=== PATIENT | male | born 1965 | race Caucasian/White ===

== ENCOUNTER 2017-08-09 19:17 | Emergency (ER) | payer BC ==
[2017-08-09 19:35] VITALS: BP 144/63
[2017-08-09] MEDS ORDERED: Ondansetron 4 MG Tab.DIS PO ONE (20:08)
[2017-08-09] MEDS ORDERED: Take Home: Ondansetron 4 MG Tab.DIS, 2 Tab Pack PO ONE (20:58)
[2017-08-09 20:59] LABS: CHLORIDE,CL 103 mmol/L (98-107); SODIUM,NA 140 mmol/L (136-145)
--- NOTE | 2017-08-09 21:06 | EDM.PDOC ---
ED HPI GENERAL MEDICAL PROBLEM - General Chief Complaint: General Stated Complaint: nausea, doesn't feel well Time Seen by Provider: 08/09/17 19:53 Source of Information: Reports: Patient History Limitations: Reports: No Limitations - History of Present Illness INITIAL COMMENTS - FREE TEXT/NARRATIVE: Patient reports nausea in the evening over the last 3 days. No reports of being around anyone with illness recently. He does have history of MS, CAD, STEMI. Patient states he feels just fine all day but develops worsening nausea as the evening progresses. He denies chest pain, SOB, fever, chills, arm or jaw numbness or tingling. He is having regular bowel and urinary movements. Denies blood stool, emesis, or urine. He does state he has some throat pain and swelling. Denies abdominal pain or cramping. No smoking, alcohol, or drug use. Is concerned due to his history. He has had the influenza vaccination this year. Onset: Gradual Duration: Intermittent Location: Reports: Abdomen Severity: Mild Associated Symptoms: Reports: Nausea/Vomiting - Related Data Allergies Allergy/AdvReac Type Severity Reaction Status Date / Time No Known Allergies Allergy Verified 08/09/17 19:29 Home Meds: Home Meds Aspirin [Faustina Chewable] 81 mg PO DAILY 09/28/14 [History] Fingolimod [Gilenya] 0.5 mg PO DAILY 09/28/14 [History] Hydrochlorothiazide [Hydrochlorothiazide] 25 mg PO DAILY 09/28/14 [History] Lisinopril [Lisinopril] 20 mg PO DAILY 09/28/14 [History] Pravastatin [Pravachol] 20 mg PO DAILY 09/28/14 [History] Vardenafil HCl [Levitra] 2.5 mg PO DAILY PRN 09/28/14 [History] Metoprolol Succinate 50 mg PO DAILY 08/09/17 [History] Past Medical History Cardiovascular History: Reports: High Cholesterol, Hypertension Neurological History: Reports: MS - Past Surgical History Cardiovascular Surgical History: Reports: Percutaneous Transluminal Angioplasty Social & Family History - Tobacco Use Smoking Status *Q: Never Smoker - Alcohol Use Days Per Week of Alcohol Use: 2 (just occasional) - Recreational Drug Use Recreational Drug Use: No ED ROS GENERAL - Review of Systems Review Of Systems: See Below Constitutional: Reports: No Symptoms HEENT: Reports: Throat Pain, Throat Swelling Respiratory: Reports: No Symptoms Cardiovascular: Reports: No Symptoms Endocrine: Reports: No Symptoms GI/Abdominal: Reports: Nausea : Reports: No Symptoms Musculoskeletal: Reports: No Symptoms Skin: Reports: No Symptoms Neurological: Reports: No Symptoms Psychiatric: Reports: No Symptoms Hematologic/Lymphatic: Reports: No Symptoms Immunologic: Reports: No Symptoms ED EXAM, GENERAL - Physical Exam Exam: See Below Exam Limited By: No Limitations General Appearance: Alert, WD/WN, No Apparent Distress Eye Exam: Bilateral Eye: EOMI, PERRL Ears: Normal TMs Nose: Normal Inspection, Normal Mucosa, No Blood Throat/Mouth: Normal Inspection, Normal Lips, Normal Teeth, Normal Gums, Normal Oropharynx, Normal Voice, No Airway Compromise Head: Atraumatic, Normocephalic Neck: Tender Midline. No: Lymphadenopathy (L), Lymphadenopathy (R) Respiratory/Chest: No Respiratory Distress, Lungs Clear, Normal Breath Sounds, No Accessory Muscle Use, Chest Non-Tender Cardiovascular: Normal Peripheral Pulses, Regular Rate, Rhythm, No Edema, No Gallop, No JVD, No Murmur, No Rub GI/Abdominal: Normal Bowel Sounds, Soft, Non-Tender, No Organomegaly, No Distention, No Abnormal Bruit, No Mass Back Exam: Normal Inspection, Full Range of Motion, NT Extremities: Normal Inspection, Normal Range of Motion, Non-Tender, Normal Capillary Refill, No Pedal Edema Neurological: Alert, Oriented, CN II-XII Intact, Normal Cognition, Normal Gait, Normal Reflexes, No Motor/Sensory Deficits Psychiatric: Normal Affect, Normal Mood Skin Exam: Warm, Dry, Intact, Normal Color, No Rash Lymphatic: No Adenopathy Course - Vital Signs Last Recorded V/S: Last Vital Signs Temp 36.8 C 08/09/17 19:30 Pulse 70 08/09/17 19:30 Resp 18 08/09/17 19:30 BP 144/63 H 08/09/17 19:30 Pulse Ox 97 08/09/17 19:30 - Orders/Labs/Meds Orders: Active Orders 24 hr Category Date Time Status AMYLASE [CHEM] Stat Lab 08/09/17 20:30 Received C-REACTIVE PROTEIN [CHEM] Stat Lab 08/09/17 20:30 Received COMPREHENSIVE METABOLIC PN,CMP [CHEM] Stat Lab 08/09/17 20:30 Received CULTURE STREP A CONFIRMATION [RM] Stat Lab 08/09/17 20:15 Results LIPASE [CHEM] Stat Lab 08/09/17 20:30 Received STREP SCRN A RAPID W CULT CONF [RM] Stat Lab 08/09/17 20:15 Results TROPONIN I [CHEM] Stat Lab 08/09/17 20:30 Received Labs: Laboratory Tests 08/09/17 Range/Units 20:30 WBC 6.0 (4.0-10.0) x10^3/uL RBC 4.38 L (4.5-6.0) x10^6/uL Hgb 13.7 L (14.0-18.0) g/dL Hct 39.1 L (40.0-52.0) % MCV 89.3 (78.0-93.0) fL MCH 31.3 (26.0-32.0) pg MCHC 35.0 (32.0-36.0) g/dL RDW Coeff of Jon 13.9 (10.0-15.0) % Plt Count 232 (130-400) x10^3/uL Neut % (Auto) 80.9 H (50.0-80.0) % Lymph % (Auto) 6.4 L (25.0-50.0) % [place] % (Auto) 11.2 H (2.0-11.0) % Eos % (Auto) 1.3 (0.0-4.0) % Baso % (Auto) 0.2 (0.2-1.2) % Meds: Medications Discontinued Medications Generic Name Dose Route Start Last Admin Trade Name Freq PRN Reason Stop Dose Admin Ondansetron HCl 4 mg 08/09/17 20:08 08/09/17 20:15 Zofran Odt PO 08/09/17 20:09 4 mg ONETIME ONE Administration Ondansetron HCl 1 packet 08/09/17 20:58 Take Home: Ondansetron Odt 4 Mg, 2 Tab Pack PO 08/09/17 20:59 ONETIME ONE - Re-Assessments/Exams Free Text/Narrative Re-Assessment/Exam: 08/09/17 21:11 review of labs, no acute process is identified. Will wait for strep culture tomorrow. Departure - Departure Time of Disposition: 21:04 Disposition: Home, Self-Care 01 Condition: Good Clinical Impression: Viral gastroenteritis - Discharge Information Instructions: Viral Gastroenteritis, Adult, [id number], Nausea, Adult Referrals: Darell Tesfaye MD [Primary Care Provider] - Additional Instructions: Follow up with your primary doctor for additional symptom management. Drink plenty of water to stay hydrated. We will send home 2 anti nausea pills to take as needed. One of my colleagues will call you if the strep culture grows anything. Please call us if you have any questions or concerns. - Problem List & Annotations (1) Viral gastroenteritis SNOMED Code(s): 102494727 Code(s): A08.4 - VIRAL INTESTINAL INFECTION, UNSPECIFIED Status: Acute Current Visit: Yes - Problem List Review Problem List Initiated/Reviewed/Updated: Yes - My Orders Last 24 Hours: My Active Orders 08/09/17 20:15 CULTURE STREP A CONFIRMATION [RM] Stat STREP SCRN A RAPID W CULT CONF [RM] Stat 08/09/17 20:30 AMYLASE [CHEM] Stat C-REACTIVE PROTEIN [CHEM] Stat COMPREHENSIVE METABOLIC PN,CMP [CHEM] Stat LIPASE [CHEM] Stat TROPONIN I [CHEM] Stat - Assessment/Plan Last 24 Hours: My Active Orders 08/09/17 20:15 CULTURE STREP A CONFIRMATION [RM] Stat STREP SCRN A RAPID W CULT CONF [RM] Stat 08/09/17 20:30 AMYLASE [CHEM] Stat C-REACTIVE PROTEIN [CHEM] Stat COMPREHENSIVE METABOLIC PN,CMP [CHEM] Stat LIPASE [CHEM] Stat TROPONIN I [CHEM] Stat Assessment:: viral gastroenteritis Plan: Follow up with your primary doctor for additional symptom management. Drink plenty of water to stay hydrated. We will send home 2 anti nausea pills to take as needed. One of my colleagues will call you if the strep culture grows anything. Please call us if you have any questions or concerns.
== END 2017-08-09 21:11 | disposition home or self-care (01) ==
LOC: VM.ED 19:17
DX: A08.4 Viral intestinal infection, unspecified (principal); E78.00 Pure hypercholesterolemia, unspecified; I10 Essential (primary) hypertension; I25.10 Atherosclerotic heart disease of native coronary artery without angina pectoris; I25.2 Old myocardial infarction; Z79.899 Other long term (current) drug therapy; Z79.82 Long term (current) use of aspirin
CPT/HCPCS: 36415; 80053; 82150; 83690; 84484; 85025; 86140; 87081; 87880; 99283; A9270

== ENCOUNTER 2018-10-14 03:50 | Emergency (ER) | payer BC ==
[2018-10-14] MEDS ORDERED: Sodium Chloride 0.9% 10 ML Syringe FLUSH PRN (03:58)
[2018-10-14] MEDS ORDERED: Sodium Chloride 0.9% 1,000 ML IV SCH (04:00)
--- NOTE | 2018-10-14 04:20 | EDM.PDOC ---
ED HPI GENERAL MEDICAL PROBLEM - General Chief Complaint: Chest Pain Stated Complaint: Chest Pain Time Seen by Provider: 10/14/18 03:55 Source of Information: Reports: Patient, EMS History Limitations: Reports: No Limitations - History of Present Illness INITIAL COMMENTS - FREE TEXT/NARRATIVE: Patient presents to the ED via EMS with complaints of chest pain, chest pressure , and left shoulder pain. No sweating, nausea, or vomiting. States this is how he felt the last time he had a heart attack. He took 2 doses of nitro; both of which relieved the pain and pressure for a brief time. He was also given 4 baby aspirin in the ambulance. Denies any headache, LOC, SOB, abdominal pain, nausea or vomiting. No blood in urine or stool. Is on Plavix and does have active MS. Onset: Today, Sudden Duration: Intermittent Location: Reports: Chest, Upper Extremity, Left Quality: Reports: Pressure Severity: Moderate Associated Symptoms: Reports: Chest Pain - Related Data Allergies Allergy/AdvReac Type Severity Reaction Status Date / Time lipitor Allergy Muscle Uncoded 06/26/18 11:21 Aches Home Meds: Home Meds Aspirin [Faustina Chewable] 81 mg PO DAILY 09/28/14 [History] Fingolimod [Gilenya] 0.5 mg PO DAILY 09/28/14 [History] Lisinopril 20 mg PO DAILY 09/28/14 [History] Vardenafil HCl [Levitra] 2.5 mg PO ASDIRECTED PRN 09/28/14 [History] Metoprolol Succinate 50 mg PO DAILY 08/09/17 [History] B12/Levomefolate Calcium/B-6 [Folbic Rf Tablet] 1 each PO DAILY 06/26/18 [ History] Clopidogrel [Plavix] 75 mg PO DAILY 06/26/18 [History] Nitroglycerin [Nitrostat] 0.4 mg SL ASDIRECTED PRN 06/26/18 [History] [place]-3/DHA/Epa/Fish Oil [Fish Oil 1,000 mg Softgel] 1 each PO DAILY 06/26/18 [ History] Rosuvastatin Calcium 20 mg PO DAILY 06/26/18 [History] Terbinafine [LamISIL] 250 mg PO DAILY 06/26/18 [History] Vit C/Ascorb Sod/Multivit-Min [Emergen-C 500 mg Chewable Tab] 500 mg PO BID [History] Past Medical History Cardiovascular History: Reports: High Cholesterol, Hypertension Neurological History: Reports: MS - Past Surgical History Cardiovascular Surgical History: Reports: Percutaneous Transluminal Angioplasty ED ROS GENERAL - Review of Systems Review Of Systems: See Below Constitutional: Reports: No Symptoms HEENT: Reports: No Symptoms Respiratory: Reports: No Symptoms Cardiovascular: Reports: Chest Pain, Other (chest pressure) Endocrine: Reports: No Symptoms GI/Abdominal: Reports: No Symptoms : Reports: No Symptoms Musculoskeletal: Reports: Shoulder Pain (left) Skin: Reports: No Symptoms Neurological: Reports: No Symptoms Psychiatric: Reports: No Symptoms Hematologic/Lymphatic: Reports: No Symptoms Immunologic: Reports: No Symptoms ED EXAM, GENERAL - Physical Exam Exam: See Below Exam Limited By: No Limitations General Appearance: Alert, WD/WN, Anxious Eye Exam: Bilateral Eye: EOMI, Normal Inspection, PERRL Ears: Normal TMs Nose: Normal Inspection, Normal Mucosa, No Blood Throat/Mouth: Normal Inspection, Normal Lips, Normal Teeth, Normal Gums, Normal Oropharynx, Normal Voice, No Airway Compromise Head: Atraumatic, Normocephalic Neck: Normal Inspection, Supple, Non-Tender, Full Range of Motion Respiratory/Chest: No Respiratory Distress, Lungs Clear, Normal Breath Sounds, No Accessory Muscle Use, Chest Non-Tender Cardiovascular: Normal Peripheral Pulses, Regular Rate, Rhythm, No Edema, No Gallop, No JVD, No Murmur, No Rub Peripheral Pulses: 2+: Posterior Tibial (L), Posterior Tibial (R), Dorsalis Pedis (L), Dorsalis Pedis (R) GI/Abdominal: Normal Bowel Sounds, Soft, Non-Tender, No Organomegaly, No Distention, No Abnormal Bruit, No Mass Back Exam: Normal Inspection, Full Range of Motion, NT Extremities: Normal Inspection, Normal Range of Motion, Non-Tender, Normal Capillary Refill, No Pedal Edema Neurological: Alert, Oriented, CN II-XII Intact, Normal Cognition, Normal Gait, Normal Reflexes, No Motor/Sensory Deficits Psychiatric: Normal Affect, Anxious Skin Exam: Warm, Dry, Intact, Normal Color, No Rash Course - Orders/Labs/Meds Orders: Active Orders 24 hr Category Date Time Status Chest 1V Frontal [CR] Stat Exams 10/14/18 03:56 Ordered Sodium Chloride 0.9% [Normal Saline] 1,000 ml Med 10/14/18 04:00 Ordered IV ASDIRECTED Sodium Chloride 0.9% [Saline Flush] Med 10/14/18 03:58 Ordered 10 ml FLUSH ASDIRECTED PRN Saline Lock Insert [OM.PC] Routine Oth 10/14/18 03:58 Ordered Medication Orders Sodium Chloride (Normal Saline) 1,000 mls @ 999 mls/hr IV ASDIRECTED RITA Sodium Chloride (Saline Flush) 10 ml FLUSH ASDIRECTED PRN PRN Reason: Keep Vein Open Labs: Laboratory Tests 10/14/18 10/14/18 10/14/18 Range/Units 04:02 04:02 04:02 WBC 4.0 (4.0-10.0) x10^3/uL RBC 4.37 L (4.5-6.0) x10^6/uL Hgb 13.4 L (14.0-18.0) g/dL Hct 40.1 (40.0-52.0) % MCV 91.8 (78.0-93.0) fL MCH 30.7 (26.0-32.0) pg MCHC 33.4 (32.0-36.0) g/dL RDW Coeff of Jon 13.9 (10.0-15.0) % Plt Count 191 (130-400) x10^3/uL Neut % (Auto) 70.3 (50.0-80.0) % Lymph % (Auto) 13.2 L (25.0-50.0) % [place] % (Auto) 13.7 H (2.0-11.0) % Eos % (Auto) 2.5 (0.0-4.0) % Baso % (Auto) 0.3 (0.2-1.2) % PT 9.9 (9.6-11.4) SEC INR 0.9 L (2.0-3.5) APTT (21.3-33.5) SEC D-Dimer, Quantitative < 0.19 (<=0.58) mg/LFEU Sodium 141 (136-145) mmol/L Potassium 3.9 (3.5-5.1) mmol/L Chloride 103 (98-107) mmol/L Carbon Dioxide 26 (21-32) mmol/L Anion Gap 15.9 (10-20) mmol/L BUN 20 H (7-18) mg/dL Creatinine 0.8 (0.70-1.30) mg/dL Est Cr Clr Drug Dosing TNP Estimated GFR (MDRD) > 60 Glucose 136 H (74-106) mg/dL Calcium 8.8 (8.5-10.1) mg/dL Corrected Calcium 9.20 (8.5-10.1) mg/dL Phosphorus 3.3 (2.6-4.7) mg/dL Magnesium 1.9 (1.8-2.4) mg/dL Total Bilirubin 0.4 (0.2-1.0) mg/dL AST 34 (15-37) U/L ALT 71 H (16-63) U/L Alkaline Phosphatase 81 (46-116) U/L POC Troponin I (0.00-0.08) ng/mL NT-Pro-B Natriuret Pep 40 (<=125) pg/mL Total Protein 7.0 (6.4-8.2) g/dL Albumin 3.5 (3.4-5.0) g/dL Globulin 3.5 Albumin/Globulin Ratio 1.00 TSH, Ultra Sensitive 2.648 (0.358-3.74) uIU/mL 10/14/18 10/14/18 Range/Units 04:02 04:07 WBC (4.0-10.0) x10^3/uL RBC (4.5-6.0) x10^6/uL Hgb (14.0-18.0) g/dL Hct (40.0-52.0) % MCV (78.0-93.0) fL MCH (26.0-32.0) pg MCHC (32.0-36.0) g/dL RDW Coeff of Jon (10.0-15.0) % Plt Count (130-400) x10^3/uL Neut % (Auto) (50.0-80.0) % Lymph % (Auto) (25.0-50.0) % [place] % (Auto) (2.0-11.0) % Eos % (Auto) (0.0-4.0) % Baso % (Auto) (0.2-1.2) % PT (9.6-11.4) SEC INR (2.0-3.5) APTT 22.6 (21.3-33.5) SEC D-Dimer, Quantitative (<=0.58) mg/LFEU Sodium (136-145) mmol/L Potassium (3.5-5.1) mmol/L Chloride (98-107) mmol/L Carbon Dioxide (21-32) mmol/L Anion Gap (10-20) mmol/L BUN (7-18) mg/dL Creatinine (0.70-1.30) mg/dL Est Cr Clr Drug Dosing Estimated GFR (MDRD) Glucose (74-106) mg/dL Calcium (8.5-10.1) mg/dL Corrected Calcium (8.5-10.1) mg/dL Phosphorus (2.6-4.7) mg/dL Magnesium (1.8-2.4) mg/dL Total Bilirubin (0.2-1.0) mg/dL AST (15-37) U/L ALT (16-63) U/L Alkaline Phosphatase (46-116) U/L POC Troponin I 0.00 (0.00-0.08) ng/mL NT-Pro-B Natriuret Pep (<=125) pg/mL Total Protein (6.4-8.2) g/dL Albumin (3.4-5.0) g/dL Globulin Albumin/Globulin Ratio TSH, Ultra Sensitive (0.358-3.74) uIU/mL Meds: Medications Generic Name Dose Route Start Last Admin Trade Name Freq PRN Reason Stop Dose Admin Sodium Chloride 1,000 mls @ 999 mls/hr 10/14/18 04:00 Normal Saline IV ASDIRECTED RITA Sodium Chloride 10 ml 10/14/18 03:58 Saline Flush FLUSH ASDIRECTED PRN Keep Vein Open - Radiology Interpretation Free Text/Narrative:: chest x-ray negative for acute process Departure - Departure Time of Disposition: 05:30 Disposition: Home, Self-Care 01 Condition: Good Clinical Impression: Atypical chest pain Forms: ED Department Discharge, Interfacility Transfer EMTALA - Problem List & Annotations (1) Atypical chest pain SNOMED Code(s): 777288030 Code(s): R07.89 - OTHER CHEST PAIN Status: Acute - My Orders Last 24 Hours: My Active Orders 10/14/18 03:56 Chest 1V Frontal [CR] Stat 10/14/18 03:58 Sodium Chloride 0.9% [Saline Flush] 10 ml FLUSH ASDIRECTED PRN Saline Lock Insert [OM.PC] Routine 10/14/18 04:00 Sodium Chloride 0.9% [Normal Saline] 1,000 ml IV ASDIRECTED - Assessment/Plan Last 24 Hours: My Active Orders 10/14/18 03:56 Chest 1V Frontal [CR] Stat 10/14/18 03:58 Sodium Chloride 0.9% [Saline Flush] 10 ml FLUSH ASDIRECTED PRN Saline Lock Insert [OM.PC] Routine 10/14/18 04:00 Sodium Chloride 0.9% [Normal Saline] 1,000 ml IV ASDIRECTED
[2018-10-14 04:39] LABS: ANION GAP 15.9 mmol/L (10-20); CHLORIDE,CL 103 mmol/L (98-107); SODIUM,NA 141 mmol/L (136-145)
--- NOTE | 2018-10-14 17:05 | CR ---
[id number] RAD/RAD Chest PA or AP 1V EXAM: SINGLE VIEW CHEST. INDICATION: CHEST PAIN COMPARISON: CORRELATION IS MADE WITH THE EXAM OF JUNE 04, 2018. FINDINGS: The lungs are clear. The cardiomediastinal contour is moderately prominent but stable. IMPRESSION: NO ACUTE PROCESS. Esa Baron MD 10/14/18 [id number] Thank you for allowing us to participate in the care of your patient.
[2018-10-15 18:15] VITALS: BP 122/64
== END 2018-10-14 06:20 | disposition home or self-care (01) ==
LOC: VM.ED 03:50
DX: R07.89 Other chest pain (principal); E78.00 Pure hypercholesterolemia, unspecified; I10 Essential (primary) hypertension; Z88.8 Allergy status to other drugs, medicaments and biological substances; Z79.82 Long term (current) use of aspirin; Z79.899 Other long term (current) drug therapy
CPT/HCPCS: 36415; 71045; 80053; 83735; 83880; 84100; 84443; 84484; 85025; 85379; 85610; 85730; 93005; 99285-25

== ENCOUNTER 2018-12-22 03:00 | Emergency (ER) | payer BC ==
[2018-12-22] MEDS ORDERED: Sodium Chloride 0.9% 10 ML Syringe FLUSH PRN (04:04)
[2018-12-22] MEDS ORDERED: Sodium Chloride 0.9% 1,000 ML IV ONE (04:05)
[2018-12-22] MEDS ORDERED: Ondansetron 4 MG/2 ML SDV IVPUSH ONE (04:05)
[2018-12-22 04:25] LABS: CHLORIDE,CL 103 mmol/L (98-107); SODIUM,NA 140 mmol/L (136-145)
--- NOTE | 2018-12-22 05:03 | EDM.PDOC ---
ED HPI GENERAL MEDICAL PROBLEM - General Chief Complaint: Chest Pain Stated Complaint: Palpitations, heart racing Time Seen by Provider: 12/22/18 03:00 Source of Information: Reports: Patient History Limitations: Reports: No Limitations - History of Present Illness INITIAL COMMENTS - FREE TEXT/NARRATIVE: Pt. presents to ER with complaints of nausea and "not feeling well". He is currently being treated for bronchitis and is on azithromycin. He states that he woke in the night with complaints of diaphoresis and palpitations. He states that he took half a tablet of imdur (a medication that he stopped taking due to intolerance) and states that he started feeling worse. Pt. has a history of CAD and previous STEMI. He has an intraventricular conduction delay and is followed by cardiology. He states that after taking the imdur, he felt lightheaded and nauseated. Denies any chest pain. No shortness of breath. No abdominal pain. Onset Date: 12/22/18 Location: Reports: Chest, Generalized - Related Data Allergies Allergy/AdvReac Type Severity Reaction Status Date / Time lipitor Allergy Muscle Uncoded 12/22/18 03:24 Aches Home Meds: Home Meds Aspirin [Faustina Chewable] 81 mg PO DAILY 09/28/14 [History] Fingolimod [Gilenya] 0.5 mg PO DAILY 09/28/14 [History] Lisinopril 20 mg PO DAILY 09/28/14 [History] Vardenafil HCl [Levitra] 2.5 mg PO ASDIRECTED PRN 09/28/14 [History] Metoprolol Succinate 50 mg PO DAILY 08/09/17 [History] Aspirin 325 mg PO Q6H PRN 06/04/18 [History] Aspirin [Halfprin] 81 mg PO DAILY 06/04/18 [History] Fingolimod HCl [Gilenya] 0.5 mg PO DAILY 06/04/18 [History] Lisinopril [Zestril] 20 mg PO DAILY 06/04/18 [History] Metoprolol Succinate [Toprol Xl] 50 mg PO DAILY 06/04/18 [History] Omeprazole Magnesium [Prilosec Otc] 40 mg PO DAILY 06/04/18 [History] Pravastatin [Pravachol] 40 mg PO DAILY 06/04/18 [History] Vardenafil HCl [Levitra] 20 mg PO ASDIRECTED PRN 06/04/18 [History] hydroCHLOROthiazide [Hydrochlorothiazide] 25 mg PO DAILY 06/04/18 [History] B12/Levomefolate Calcium/B-6 [Folbic Rf Tablet] 1 each PO DAILY 06/26/18 [ History] Clopidogrel [Plavix] 75 mg PO DAILY 06/26/18 [History] Nitroglycerin [Nitrostat] 0.4 mg SL ASDIRECTED PRN 06/26/18 [History] [place]-3/DHA/Epa/Fish Oil [Fish Oil 1,000 mg Softgel] 1 each PO DAILY 06/26/18 [ History] Rosuvastatin Calcium 20 mg PO DAILY 06/26/18 [History] Terbinafine [LamISIL] 250 mg PO DAILY 06/26/18 [History] Vit C/Ascorb Sod/Multivit-Min [Emergen-C 500 mg Chewable Tab] 500 mg PO BID [History] Past Medical History - Past Health History Medical/Surgical History: Denies Medical/Surgical History HEENT History: Reports: Other (See Below) Other HEENT History: Optic Neuritis Cardiovascular History: Reports: High Cholesterol, Hypertension, Other (See Below) Other Cardiovascular History: abnormal ekg Genitourinary History: Reports: Other (See Below) Other Genitourinary History: Erectile Disfunction Neurological History: Reports: MS Psychiatric History: Reports: Anxiety Endocrine/Metabolic History: Reports: Obesity/BMI 30+ - Infectious Disease History Infectious Disease History: Reports: Chicken Pox - Past Surgical History Cardiovascular Surgical History: Reports: Percutaneous Transluminal Angioplasty Social & Family History - Family History Family Medical History: Noncontributory - Caffeine Use Caffeine Use: Reports: Tea Other Caffeine Use: 1 time day ED ROS GENERAL - Review of Systems Review Of Systems: See Below Constitutional: Reports: Fatigue, Night Sweats, Diaphoresis. Denies: Fever, Chills HEENT: Reports: No Symptoms Respiratory: Reports: No Symptoms Cardiovascular: Reports: Lightheadedness Endocrine: Reports: No Symptoms GI/Abdominal: Reports: No Symptoms : Reports: No Symptoms Musculoskeletal: Reports: No Symptoms Skin: Reports: No Symptoms Neurological: Reports: No Symptoms Psychiatric: Reports: No Symptoms Hematologic/Lymphatic: Reports: No Symptoms Immunologic: Reports: No Symptoms ED EXAM, GENERAL - Physical Exam Exam: See Below Exam Limited By: No Limitations General Appearance: Alert, WD/WN, No Apparent Distress Eye Exam: Bilateral Eye: EOMI, Normal Fundi, Normal Inspection, PERRL Nose: Normal Inspection, Normal Mucosa, No Blood Throat/Mouth: Normal Inspection, Normal Lips, Normal Teeth, Normal Gums, Normal Oropharynx, Normal Voice, No Airway Compromise Head: Atraumatic, Normocephalic Neck: Normal Inspection, Supple, Non-Tender, Full Range of Motion Respiratory/Chest: No Respiratory Distress, Lungs Clear, Normal Breath Sounds, No Accessory Muscle Use, Chest Non-Tender Cardiovascular: Normal Peripheral Pulses, Regular Rate, Rhythm, No Edema, No Gallop, No JVD, No Murmur, No Rub Peripheral Pulses: 4+: Radial (R) GI/Abdominal: Normal Bowel Sounds, Soft, Non-Tender, No Organomegaly, No Distention, No Mass (Male) Exam: Deferred Rectal (Males) Exam: Deferred Back Exam: Normal Inspection, Full Range of Motion, NT Extremities: Normal Inspection, Normal Range of Motion, Non-Tender, Normal Capillary Refill, No Pedal Edema Neurological: Alert, Oriented, CN II-XII Intact, Normal Cognition, Normal Gait, Normal Reflexes, No Motor/Sensory Deficits Psychiatric: Normal Affect, Normal Mood Skin Exam: Warm, Dry, Intact, No Rash Lymphatic: No Adenopathy EKG INTERPRETATION Rhythm: NSR EKG Interpretation Comments: intraventricular conduction delay noted. EKG was compared to several others and was unchanged. Course - Vital Signs Last Recorded V/S: Last Vital Signs Temp 36.3 C 12/22/18 03:10 Pulse 62 12/22/18 03:10 Resp 14 12/22/18 03:58 BP 109/54 L 12/22/18 03:58 Pulse Ox 97 12/22/18 03:58 - Orders/Labs/Meds Orders: Active Orders 24 hr Category Date Time Status EKG Documentation Completion [RC] STAT Care 12/22/18 03:25 Active Chest 2V [CR] Stat Exams 12/22/18 03:25 Taken Sodium Chloride 0.9% [Normal Saline] 1,000 ml Med 12/22/18 04:05 Active IV .BOLUS Sodium Chloride 0.9% [Saline Flush] Med 12/22/18 04:04 Active 10 ml FLUSH ASDIRECTED PRN Peripheral IV Insertion Adult [OM.PC] Routine Oth 12/22/18 04:05 Ordered Medication Orders Sodium Chloride (Normal Saline) 1,000 mls @ 1,000 mls/hr IV .BOLUS ONE Stop: 12/22/18 05:04 Last Admin: 12/22/18 04:05 Dose: 1,000 mls/hr Sodium Chloride (Saline Flush) 10 ml FLUSH ASDIRECTED PRN PRN Reason: Keep Vein Open Labs: Laboratory Tests 12/22/18 12/22/18 12/22/18 Range/Units 03:47 03:47 03:47 WBC 4.1 (4.0-10.0) x10^3/uL RBC 4.43 L (4.5-6.0) x10^6/uL Hgb 13.9 L (14.0-18.0) g/dL Hct 41.0 (40.0-52.0) % MCV 92.6 (78.0-93.0) fL MCH 31.4 (26.0-32.0) pg MCHC 33.9 (32.0-36.0) g/dL RDW Coeff of Jon 13.8 (10.0-15.0) % Plt Count 216 (130-400) x10^3/uL Neut % (Auto) 68.9 (50.0-80.0) % Lymph % (Auto) 12.1 L (25.0-50.0) % [place] % (Auto) 15.3 H (2.0-11.0) % Eos % (Auto) 3.2 (0.0-4.0) % Baso % (Auto) 0.5 (0.2-1.2) % PT 9.9 L (10.0-12.8) SEC INR 0.9 L (2.0-3.5) Sodium 140 (136-145) mmol/L Potassium 4.0 (3.5-5.1) mmol/L Chloride 103 (98-107) mmol/L Carbon Dioxide 25 (21-32) mmol/L Anion Gap 16.0 (10-20) mmol/L BUN 18 (7-18) mg/dL Creatinine 0.8 (0.70-1.30) mg/dL Est Cr Clr Drug Dosing 4.24 mL/min Estimated GFR (MDRD) > 60 Glucose 120 H (74-106) mg/dL Calcium 8.3 L (8.5-10.1) mg/dL Corrected Calcium 8.54 (8.5-10.1) mg/dL Phosphorus 3.2 (2.6-4.7) mg/dL Magnesium 2.1 (1.8-2.4) mg/dL Total Bilirubin 0.4 (0.2-1.0) mg/dL AST 21 (15-37) U/L ALT 37 (16-63) U/L Alkaline Phosphatase 74 (46-116) U/L Troponin I < 0.017 (<=0.056) ng/mL C-Reactive Protein 0.4 (<=0.9) mg/dL NT-Pro-B Natriuret Pep 73 (<=125) pg/mL Total Protein 6.7 (6.4-8.2) g/dL Albumin 3.7 (3.4-5.0) g/dL Globulin 3.0 Albumin/Globulin Ratio 1.23 TSH, Ultra Sensitive 2.807 (0.358-3.74) uIU/mL Meds: Medications Generic Name Dose Route Start Last Admin Trade Name Freq PRN Reason Stop Dose Admin Sodium Chloride 1,000 mls @ 1,000 mls/hr 12/22/18 04:05 12/22/18 04:05 Normal Saline IV 12/22/18 05:04 1,000 mls/hr .BOLUS ONE Administration Sodium Chloride 10 ml 12/22/18 04:04 Saline Flush FLUSH ASDIRECTED PRN Keep Vein Open Discontinued Medications Generic Name Dose Route Start Last Admin Trade Name Freq PRN Reason Stop Dose Admin Ondansetron HCl 4 mg 12/22/18 04:05 12/22/18 04:10 Zofran IVPUSH 12/22/18 04:06 4 mg ONETIME ONE Administration - Radiology Interpretation Free Text/Narrative:: chest x-ray was negative for acute pathology - Re-Assessments/Exams Free Text/Narrative Re-Assessment/Exam: 12/22/18 05:06 Pt. was given a liter of normal saline and zofran 4mg IV. He reports significant improvement in his symptoms and states that they are resolved. Departure - Departure Time of Disposition: 05:07 Disposition: Home, Self-Care 01 Clinical Impression: Palpitations - Discharge Information Instructions: Palpitations, [id number] Referrals: PCP,None [Primary Care Provider] - Forms: ED Department Discharge Additional Instructions: Home to rest. Return to ER if you have any chest pain, shortness of breath, or lightheadedness. Follow-up in clinic in 10-14 days for recheck. - My Orders Last 24 Hours: My Active Orders 12/22/18 03:25 EKG Documentation Completion [RC] STAT Chest 2V [CR] Stat 12/22/18 04:04 Sodium Chloride 0.9% [Saline Flush] 10 ml FLUSH ASDIRECTED PRN 12/22/18 04:05 Sodium Chloride 0.9% [Normal Saline] 1,000 ml IV .BOLUS Peripheral IV Insertion Adult [OM.PC] Routine - Assessment/Plan Last 24 Hours: My Active Orders 12/22/18 03:25 EKG Documentation Completion [RC] STAT Chest 2V [CR] Stat 12/22/18 04:04 Sodium Chloride 0.9% [Saline Flush] 10 ml FLUSH ASDIRECTED PRN 12/22/18 04:05 Sodium Chloride 0.9% [Normal Saline] 1,000 ml IV .BOLUS Peripheral IV Insertion Adult [OM.PC] Routine Plan: Pt. will be discharged. He states that he is feeling better. His BP on arrival to ER with in the 100 systolic range which is quite low for this patient. He has not tolerated the imdur in the past and the drop in BP is likely due to this medication. Advised to stop this medication completely and continue with his current medications. He will return to ER if he has any chest pain, shortness of breath, recurrence of palpitations.
[2018-12-22 05:36] VITALS: BP 103/60
--- NOTE | 2018-12-22 08:23 | CR ---
[id number] RAD/RAD Chest PA And Lateral EXAM: RAD Chest PA And Lateral INDICATION: SYNCOPE, BRADYCARDIA. COMPARISON: October 14, 2018. DISCUSSION: Cardiomediastinal silhouette is normal in size and contour. No infiltrate, effusion, pneumothorax, or edema. IMPRESSION: No acute findings or significant change from the prior examination. Neto Stearns MD 12/22/18 0820 Thank you for allowing us to participate in the care of your patient.
== END 2018-12-22 05:25 | disposition home or self-care (01) ==
LOC: VM.ED 03:00
DX: R00.2 Palpitations (principal); I10 Essential (primary) hypertension; E78.00 Pure hypercholesterolemia, unspecified; F41.9 Anxiety disorder, unspecified; Z88.8 Allergy status to other drugs, medicaments and biological substances; Z88.2 Allergy status to sulfonamides; Z79.899 Other long term (current) drug therapy
CPT/HCPCS: 36415; 71046; 80053; 83735; 83880; 84100; 84443; 84484; 85025; 85610; 86140; 93005; 96361; 96374; 99285; J2405; J7030

== ENCOUNTER 2019-12-17 01:57 | Emergency (ER) | payer BC ==
[2019-12-17] MEDS ORDERED: Sodium Chloride 0.9% 10 ML Syringe FLUSH PRN (02:15)
--- NOTE | 2019-12-17 02:34 | EDM.PDOC ---
ED HPI GENERAL MEDICAL PROBLEM - General Chief Complaint: Chest Pain Stated Complaint: Chest Pain / Weakness Time Seen by Provider: 12/17/19 01:57 Source of Information: Reports: Patient, EMS Notes Reviewed History Limitations: Reports: No Limitations - History of Present Illness INITIAL COMMENTS - FREE TEXT/NARRATIVE: Patient comes emergency department today from home with complaints of chest pain shortness of breath and weakness. This patient was awoken from sleep approximately 1:00 this morning shortness of breath diaphoresis chest pressure. This is a very similar presentation that he had about 1 year ago where he had an angiogram where he did not have any intervention but noted that he had about 50% occlusion of 1 of his coronary arteries. He did take 1 of his nitroglycerin at home which really did not do much for his pain initially but did make him feel very weak and lightheaded and had to lay on the ground. No nausea. Shortly after the episode of weakness and lightheadedness from the nitro his shortness of breath pounding chest pressure resolved. Upon EMS arrival per report he was diaphoretic and laying on the floor. He was hypotensive with a systolic blood pressure of approximately 100 which improved on its own. He was given 324 of aspirin. He did not receive any more nitro. His pain was midsternal in his chest. It did not radiate to his arms jaw neck or back. He has felt well over the past couple of days. He has been able to do physical exercise such as carrying a very heavy 100 pound piece of steel from the back of his yard to the front without any chest pain or shortness of breath. He has no exercise intolerance from baseline. Upon arrival he denies any complaints, no SOB CP weakness dizziness or palpitation or heart pounding sensation. Chest Pain Score (Numeric/FACES): 1 - Related Data Allergies Allergy/AdvReac Type Severity Reaction Status Date / Time lipitor AdvReac Intermediate Muscle Uncoded 12/17/19 02:37 Aches Home Meds: Home Meds Fingolimod [Gilenya] 0.5 mg PO DAILY 09/28/14 [History] Metoprolol Succinate 50 mg PO DAILY 08/09/17 [History] Aspirin [Halfprin] 81 mg PO DAILY 06/04/18 [History] Omeprazole Magnesium [Prilosec Otc] 20 mg PO BIDAC 06/04/18 [History] lisinopriL [Zestril] 20 mg PO DAILY 06/04/18 [History] B12/Levomefolate Calcium/B-6 [Folbic Rf Tablet] 1 each PO DAILY 06/26/18 [ History] Nitroglycerin [Nitrostat] 0.4 mg SL ASDIRECTED PRN 06/26/18 [History] [place]-3/DHA/Epa/Fish Oil [Fish Oil 1,000 mg Softgel] 2 each PO DAILY 06/26/18 [ History] Rosuvastatin Calcium 20 mg PO DAILY 06/26/18 [History] Vit C/Ascorb Sod/Multivit-Min [Emergen-C 500 mg Chewable Tab] 500 mg PO BID [History] Acetaminophen 500 mg PO Q4HR PRN 12/17/19 [History] Vardenafil HCl [Levitra] 20 mg PO DAILY PRN 12/17/19 [History] Past Medical History - Past Health History Medical/Surgical History: Denies Medical/Surgical History HEENT History: Reports: Other (See Below) Other HEENT History: Optic Neuritis Cardiovascular History: Reports: High Cholesterol, Hypertension, Other (See Below) Other Cardiovascular History: abnormal ekg Genitourinary History: Reports: Other (See Below) Other Genitourinary History: Erectile Disfunction Neurological History: Reports: MS Psychiatric History: Reports: Anxiety Endocrine/Metabolic History: Reports: Obesity/BMI 30+ - Infectious Disease History Infectious Disease History: Reports: Chicken Pox - Past Surgical History Cardiovascular Surgical History: Reports: Percutaneous Transluminal Angioplasty Social & Family History - Family History Family Medical History: Noncontributory - Caffeine Use Caffeine Use: Reports: Tea Other Caffeine Use: 1 time day ED ROS GENERAL - Review of Systems Review Of Systems: Comprehensive ROS is negative, except as noted in HPI. ED EXAM, GENERAL - Physical Exam Exam: See Below Exam Limited By: No Limitations General Appearance: Alert, WD/WN, No Apparent Distress Eye Exam: Bilateral Eye: EOMI, PERRL Ears: Normal External Exam Nose: Normal Inspection Throat/Mouth: Normal Inspection, Normal Oropharynx Head: Atraumatic, Normocephalic Neck: Normal Inspection, Supple Respiratory/Chest: No Respiratory Distress, Lungs Clear, Normal Breath Sounds, No Accessory Muscle Use, Chest Non-Tender Cardiovascular: Normal Peripheral Pulses, Regular Rate, Rhythm, No Edema GI/Abdominal: Normal Bowel Sounds, Soft, Non-Tender (Male) Exam: Deferred Rectal (Males) Exam: Deferred Back Exam: Normal Inspection, Full Range of Motion Extremities: Normal Inspection, Normal Capillary Refill, Pedal Edema (scant pedal edema bilaterally. ) Neurological: Alert, Oriented, Normal Cognition, Normal Gait, No Motor/Sensory Deficits Psychiatric: Normal Affect, Normal Mood Skin Exam: Warm, Intact, Diaphoretic (minimally. ), Pallor Lymphatic: No Adenopathy EKG INTERPRETATION EKG Date: 12/17/19 Time: 02:05 Rhythm: NSR Rate (Beats/Min): 56 [place]: Normal P-Wave: Present QRS: Normal ST-T: Elevated (? elevation in II.) QT: Normal Comparison: Change From Previous EKG (I called and spoke with DR. Josué Connelly commission specialist regional psychiatric director at [facility] in [place]. Dr. Connelly had the current and previous EKG available for review. HPI ER COURSE findings and concerns for a early isolated ST elevation in II was relayed. DR. Connelly did not feel it met the criteria for a STEMI. See if pain returns repeat EKG and trend troponins.) Course - Vital Signs Last Recorded V/S: Last Vital Signs Temp 36.3 C 12/17/19 02:05 Pulse 52 L 12/17/19 06:20 Resp 12 12/17/19 06:20 BP 124/69 12/17/19 06:20 Pulse Ox 97 12/17/19 06:20 - Orders/Labs/Meds Orders: Active Orders 24 hr Category Date Time Status EKG Documentation Completion [RC] STAT Care 12/17/19 02:15 Active Chest 1V Frontal [CR] Stat Exams 12/17/19 02:15 Taken Sodium Chloride 0.9% [Saline Flush] Med 12/17/19 02:15 Active 10 ml FLUSH ASDIRECTED PRN Peripheral IV Insertion Adult [OM.PC] Stat Oth 12/17/19 02:15 Ordered Medication Orders Sodium Chloride (Saline Flush) 10 ml FLUSH ASDIRECTED PRN PRN Reason: Keep Vein Open Labs: Laboratory Tests 12/17/19 12/17/19 12/17/19 Range/Units 02:30 02:30 02:30 WBC 3.4 L (4.0-10.0) x10^3/uL RBC 4.37 L (4.5-6.0) x10^6/uL Hgb 13.6 L (14.0-18.0) g/dL Hct 39.6 L (40.0-52.0) % MCV 90.6 (78.0-93.0) fL MCH 31.1 (26.0-32.0) pg MCHC 34.3 (32.0-36.0) g/dL RDW Coeff of Jon 13.5 (10.0-15.0) % Plt Count 171 (130-400) x10^3/uL Neut % (Auto) 66.9 (50.0-80.0) % Lymph % (Auto) 11.6 L (25.0-50.0) % [place] % (Auto) 18.9 H (2.0-11.0) % Eos % (Auto) 2.3 (0.0-4.0) % Baso % (Auto) 0.3 (0.2-1.2) % PT 10.2 (9.5-12.3) SEC INR 0.9 L (2.0-3.5) APTT 22.9 L (25.6-32.8) SEC Sodium 143 (136-145) mmol/L Potassium 3.5 (3.5-5.1) mmol/L Chloride 105 (98-107) mmol/L Carbon Dioxide 27 (21-32) mmol/L Anion Gap 14.5 (10-20) mmol/L BUN 20 H (7-18) mg/dL Creatinine 0.9 (0.70-1.30) mg/dL Est Cr Clr Drug Dosing 110.36 mL/min Estimated GFR (MDRD) > 60 Glucose 117 H (74-106) mg/dL Calcium 8.6 (8.5-10.1) mg/dL Corrected Calcium 8.84 (8.5-10.1) mg/dL Total Bilirubin 0.4 (0.2-1.0) mg/dL AST 19 (15-37) U/L ALT 30 (16-63) U/L Alkaline Phosphatase 62 (46-116) U/L POC Troponin I (0.00-0.08) ng/mL Troponin I 0.038 (<=0.056) ng/mL C-Reactive Protein < 0.2 (<=0.9) mg/dL NT-Pro-B Natriuret Pep 46 (<=125) pg/mL Total Protein 6.5 (6.4-8.2) g/dL Albumin 3.7 (3.4-5.0) g/dL Globulin 2.8 Albumin/Globulin Ratio 1.32 12/17/19 12/17/19 Range/Units 02:44 05:50 WBC (4.0-10.0) x10^3/uL RBC (4.5-6.0) x10^6/uL Hgb (14.0-18.0) g/dL Hct (40.0-52.0) % MCV (78.0-93.0) fL MCH (26.0-32.0) pg MCHC (32.0-36.0) g/dL RDW Coeff of Jon (10.0-15.0) % Plt Count (130-400) x10^3/uL Neut % (Auto) (50.0-80.0) % Lymph % (Auto) (25.0-50.0) % [place] % (Auto) (2.0-11.0) % Eos % (Auto) (0.0-4.0) % Baso % (Auto) (0.2-1.2) % PT (9.5-12.3) SEC INR (2.0-3.5) APTT (25.6-32.8) SEC Sodium (136-145) mmol/L Potassium (3.5-5.1) mmol/L Chloride (98-107) mmol/L Carbon Dioxide (21-32) mmol/L Anion Gap (10-20) mmol/L BUN (7-18) mg/dL Creatinine (0.70-1.30) mg/dL Est Cr Clr Drug Dosing mL/min Estimated GFR (MDRD) Glucose (74-106) mg/dL Calcium (8.5-10.1) mg/dL Corrected Calcium (8.5-10.1) mg/dL Total Bilirubin (0.2-1.0) mg/dL AST (15-37) U/L ALT (16-63) U/L Alkaline Phosphatase (46-116) U/L POC Troponin I 0.01 (0.00-0.08) ng/mL Troponin I < 0.017 (<=0.056) ng/mL C-Reactive Protein (<=0.9) mg/dL NT-Pro-B Natriuret Pep (<=125) pg/mL Total Protein (6.4-8.2) g/dL Albumin (3.4-5.0) g/dL Globulin Albumin/Globulin Ratio Meds: Medications Generic Name Dose Route Start Last Admin Trade Name Freq PRN Reason Stop Dose Admin Sodium Chloride 10 ml 12/17/19 02:15 Saline Flush FLUSH ASDIRECTED PRN Keep Vein Open - Re-Assessments/Exams Free Text/Narrative Re-Assessment/Exam: 12/17/19 02:30 0214 I called and spoke with Dr. Connelly commission specialist vernon at [facility] in [place]. He does not feel it is a STEMI at this time. Will monitor closely repeat EKG if pain returns and trend troponins. PT received aspirin prior to arrival to the ED. He was chest pain and sob free upon arrival. 12/17/19 02:55 Reviewing his [facility] chart it appears that he has had a total of 2 angiograms that show nonobstructive coronary artery disease mid LAD 30-40% stenosis with possible bridge last 06/05/18. He was placed on Imdur in 10/24 for recurrent concerns of the coronary bridging although he discontinued the Imdur due to the side effects of the headache. Further reviewing his chart and also notes that all of his symptoms the multiple times that he has had very similar presentation have all happened during the night. With the presence of minimal coronary artery disease as well as coronary bridging I wonder if he does not have some component of obstructive sleep apnea that is causing hypoxia cardiac ischemia mixed with the coronary artery bridging. He has never had a sleep study in the past. He does have the body habitus to be concerning for obstructive sleep apnea. 12/17/19 07:27 Repeat troponin on the patient at a 4-hour usman is negative. Rested comfortably since his arrival without any chest pain shortness of breath. Had a rather long discussion with the patient about my concerns of obstructive sleep apnea causing his symptoms is most of his presentation over the past couple years has been during the middle the night. Follow-up with his primary care provider as soon as possible to see if he can get a sleep study scheduled. He was noted to have sonorous respirations while he was sleeping in the emergency department but there is no identified hypoxia although he was sitting up in the bed while he was sleeping. We also discussed the options of starting Imdur at a much lower dose than he did initially to see if he can tolerate the side effects for the prevention of angina. Discussed this with his primary care provider. Discharge instructions were explained to the patient plan of care as well he was comfortable with this plan and his questions are answered. Departure - Departure Time of Disposition: 07:20 Disposition: Home, Self-Care 01 Clinical Impression: Coronary-myocardial bridge, Atypical chest pain Instructions: Nonspecific Chest Pain, Adult, [id number], Sleep Apnea, Easy-to -Read Referrals: Cassius Vega, REJECTED ITEMS CLERK [Primary Care Provider] - Forms: ED Department Discharge Additional Instructions: Continue with your previous medications. See Cassius Vega WIRELINE SUPERVISOR for follow up TRAVIS and consider a sleep apnea test as well as we discussed. Use your nitro if the chest pain develops again. Consider as well starting lower dose Imdur again to see if you can tolerate the side effects and this may help with coronary angina, spams. Return to the ED if new or worsening symptoms. Follow up with PCP as stated above. Sepsis Event Note - Focused Exam Vital Signs: Vital Signs Temp Pulse Resp BP Pulse Ox 12/17/19 06:20 52 L 12 124/69 97 12/17/19 05:50 57 L 14 114/66 97 12/17/19 05:20 55 L 14 110/64 96 12/17/19 04:50 52 L 14 118/67 95 12/17/19 04:20 52 L 14 122/64 94 L 12/17/19 03:50 50 L 14 126/69 94 L 12/17/19 03:20 51 L 15 133/71 94 L 12/17/19 03:00 54 L 14 118/72 94 L 12/17/19 02:05 36.3 C 54 L 12 130/71 99 Date Exam was Performed: 12/17/19 Time Exam was Performed: 07:22 - My Orders Last 24 Hours: My Active Orders 12/17/19 02:15 EKG Documentation Completion [RC] STAT Chest 1V Frontal [CR] Stat Sodium Chloride 0.9% [Saline Flush] 10 ml FLUSH ASDIRECTED PRN Peripheral IV Insertion Adult [OM.PC] Stat - Assessment/Plan Last 24 Hours: My Active Orders 12/17/19 02:15 EKG Documentation Completion [RC] STAT Chest 1V Frontal [CR] Stat Sodium Chloride 0.9% [Saline Flush] 10 ml FLUSH ASDIRECTED PRN Peripheral IV Insertion Adult [OM.PC] Stat Assessment:: Atypical Chest pain vs angina, ? if doesn't have underlying AMELIA undiagnosed causing ischemia or stress during the night leading to angina type pain. Hx of Myocardial bridging Hx of CAD HX of MS. Plan: Continue with your previous medications. See Cassius Vega CNP for follow up TRAVIS and consider a sleep apnea test as well as we discussed. Use your nitro if the chest pain develops again. Consider as well starting lower dose Imdur again to see if you can tolerate the side effects and this may help with coronary angina, spams. Return to the ED if new or worsening symptoms. Follow up with PCP as stated above.
[2019-12-17 03:04] LABS: PTT,PARTIAL THROMBOPLSTIN TIME 22.9 SEC (25.6-32.8)
[2019-12-17 03:14] LABS: CHLORIDE,CL 105 mmol/L (98-107); SODIUM,NA 143 mmol/L (136-145)
[2019-12-17 03:15] LABS: ANION GAP 14.5 mmol/L (10-20)
[2019-12-17 06:55] VITALS: BP 124/69; PULSE 52
--- NOTE | 2019-12-17 08:31 | CR ---
[id number] RAD/RAD Chest PA or AP 1V EXAM: RAD Chest PA or AP 1V INDICATION: SHORT OF BREATH COMPARISON: January 11, 2019 and December 2018. DISCUSSION: Cardiomegaly and central vascular congestion. No infiltrate, effusion, pneumothorax, or edema. IMPRESSION: As above. Neto Stearns MD 12/17/19 0830 Thank you for allowing us to participate in the care of your patient.
== END 2019-12-17 07:52 | disposition home or self-care (01) ==
LOC: VM.ED 01:57 → SUPCPDRO 01:57 → VM.ED 07:52
DX: Q24.5 Malformation of coronary vessels (principal); R07.89 Other chest pain; E78.00 Pure hypercholesterolemia, unspecified; I10 Essential (primary) hypertension; F41.9 Anxiety disorder, unspecified; E66.9 Obesity, unspecified; Z68.37 Body mass index [BMI] 37.0-37.9, adult; Z88.8 Allergy status to other drugs, medicaments and biological substances; Z79.82 Long term (current) use of aspirin; Z79.899 Other long term (current) drug therapy
CPT/HCPCS: 36415; 71045; 80053; 83880; 84484; 85025; 85610; 85730; 86140; 93005; 99285-25

== ENCOUNTER 2021-12-21 10:32 | Day surgery (SDC) | payer BC ==
[~2021-12-21 10:32] MED LIST: Lactated Ringers 1,000 ML IV SCH
[2021-12-21] MEDS ORDERED: Propofol 200 MG/20 ML SDV ONE (11:58)
[2021-12-21] MEDS ORDERED: fentaNYL 100 MCG/2 ML SDV ONE (11:58)
[2021-12-21 13:26] VITALS: BP 139/73; PULSE 54
[2022-01-21] MEDS ORDERED: Lactated Ringers 1,000 ML IV SCH (07:00)
[2022-01-21] MEDS ORDERED: Sodium Chloride 0.9% 10 ML Syringe FLUSH PRN (07:00)
== END 2021-12-21 14:10 | disposition home or self-care (01) ==
LOC: VM.SDS 10:32
PROVIDERS: ATTEND Surgery
DX: R19.5 Other fecal abnormalities (principal); I10 Essential (primary) hypertension; E78.2 Mixed hyperlipidemia; I25.10 Atherosclerotic heart disease of native coronary artery without angina pectoris; N52.9 Male erectile dysfunction, unspecified; E66.01 Morbid (severe) obesity due to excess calories; K21.9 Gastro-esophageal reflux disease without esophagitis; I25.2 Old myocardial infarction; G35 Multiple sclerosis; F43.22 Adjustment disorder with anxiety; Z79.899 Other long term (current) drug therapy; Z88.8 Allergy status to other drugs, medicaments and biological substances; Z68.41 Body mass index [BMI] 40.0-44.9, adult
CPT/HCPCS: 00811; J2704; J3010; J7120

== ENCOUNTER 2022-05-29 09:14 | Emergency (ER) | payer BC ==
[2022-05-29] MEDS: Ketorolac 30 MG/ML SDV IM ONE (10:22)
[2022-05-29 11:02] VITALS: BP 118/72; PULSE 84
== END 2022-05-29 10:55 | disposition home or self-care (01) ==
LOC: VM.ED 09:14
DX: M25.461 Effusion, right knee (principal); E78.00 Pure hypercholesterolemia, unspecified; I10 Essential (primary) hypertension; E66.9 Obesity, unspecified; Z88.8 Allergy status to other drugs, medicaments and biological substances; Z79.899 Other long term (current) drug therapy; Z79.82 Long term (current) use of aspirin
CPT/HCPCS: 96372; 99283; J1885

== ENCOUNTER 2024-11-28 19:44 | Emergency (ER) | payer BC ==
[2024-11-28] MEDS ORDERED: Sodium Chloride 0.9% 10 ML Syringe FLUSH PRN (19:59)
[2024-11-28 20:16] LABS: HEMATOCRIT 36.9 % (40.0-52.0); HEMOGLOBIN 13.1 g/dL (14.0-18.0); IMMATURE GRAN ABSOLUTE AUTO 0.02 x10^3/uL (0.00-0.07); IMMATURE GRAN PERCENT AUTO 0.2 % (0.00-0.43); LYMPHOCYTES ABSOLUTE AUTO 0.3 x10^3/uL (1.0-4.8); MEAN CORPUSCULAR HGB CONC 35.5 g/dL (32.0-36.0); MEAN CORPUSCULAR VOLUME 87.4 fL (78.0-93.0); MONOCYTES ABSOLUTE AUTO 0.5 x10^3/uL (0.0-0.8); MONOCYTES PERCENT AUTO 4.2 % (2.0-11.0); NEUTROPHILS ABSOLUTE AUTO 10.4 x10^3/uL (1.8-7.7); NEUTROPHILS PERCENT AUTO 92.6 % (50.0-80.0); RED BLOOD CELL COUNT 4.22 x10^6/uL (4.5-6.0); WHITE BLOOD CELL COUNT,WBC 11.2 x10^3/uL (4.0-10.0)
[2024-11-28] MEDS: Sodium Chloride 0.9% 1,000 ML IV ONE (20:20)
[2024-11-28] MEDS: Ondansetron 4 MG/2 ML SDV IVPUSH ONE (20:22)
[2024-11-28] MEDS: Morphine 4 MG/ML Syringe IVPUSH ONE (20:24)
[2024-11-28 20:37] LABS: A/G RATIO 1.59; ALANINE AMINOTRANSFERASE,ALT 31 U/L (16-63); ALBUMIN 4.3 g/dL (3.4-5.0); ALKALINE PHOSPHATASE 70 U/L (46-116); ASPARTATE AMNIOTRANSFERASE,AST 29 U/L (15-37); BILIRUBIN TOTAL 0.9 mg/dL (0.2-1.0); BLOOD UREA NITROGEN,BUN 27 mg/dL (7-18); CALCIUM 8.9 mg/dL (8.5-10.1); CARBON DIOXIDE,CO2 25 mmol/L (21-32); CHLORIDE,CL 100 mmol/L (98-107); CREATININE 1.1 mg/dL (0.70-1.30); GLUCOSE RANDOM 147 mg/dL (70-99); POTASSIUM,K 3.9 mmol/L (3.5-5.1); SODIUM,NA 137 mmol/L (136-145)
[2024-11-28 20:39] LABS: ANION GAP 15.9 mmol/L (5-15); ESTIMATED GFR 78 mL/min (>=60)
[2024-11-28] MEDS: Prochlorperazine 10 MG/2 ML SDV IV ONE (21:22)
[2024-11-28] MEDS: Scopalamine 1mg/3day Transdermal Patch TRDERM STA (21:25)
[2024-11-28] MEDS: Prochlorperazine 5 MG Tab PO PRN (21:45)
== END 2024-11-28 21:59 | disposition home or self-care (01) ==
LOC: VM.ED 19:44
DX: K91.0 Vomiting following gastrointestinal surgery (principal); I10 Essential (primary) hypertension; E78.00 Pure hypercholesterolemia, unspecified; E66.9 Obesity, unspecified; K21.9 Gastro-esophageal reflux disease without esophagitis; Z79.82 Long term (current) use of aspirin; Z79.899 Other long term (current) drug therapy; Z88.8 Allergy status to other drugs, medicaments and biological substances
CPT/HCPCS: 80053; 85025; 96361; 96374; 96375; 99284; 99284-25; A9270-GY; J0780; J2270; J2405; J7030; Q0164